=== PATIENT | female | born 1945 | race Two or more races ===

== ENCOUNTER 2023-09-14 15:58 | Outpatient (CLI) | payer OTHER | END 2023-09-14 16:10 | disposition home or self-care (01) | LOC: SONOGRAMA 15:58 | PROVIDERS: ATTEND Pathology Anatomic Pathology & Clinical Pathology | DX: D34 Benign neoplasm of thyroid gland (principal); E07.89 Other specified disorders of thyroid; D44.0 Neoplasm of uncertain behavior of thyroid gland; E04.1 Nontoxic single thyroid nodule ==